=== PATIENT | male | born 1945 | race Caucasian/White ===

== ENCOUNTER → 2024-04-27 | Outpatient (CLI) | payer OTHER, SELFPAY ==
--- NOTE | 2024-04-27 | IMM_PTH ---
PATIENT: AC SAENZ LOC: [facility] U#:[id number] AGE/SX: 78/M ROOM: RE04/27/[address]: Dr. Clark Mendez MD : 1945 BED: DIS: 04/27/2024 SPEC #: [id number] RECD: 05/01/24 10:39 STATUS: SOUT REQ #: [id number] LUCY: 04/27/24 00:[address]: Clark Mendez DEPT: IMMUNOHISTOCHEMISTRY RECD BY: Reddy Oakley ENTERED: 05/01/24 10:39 SP TYPE: IMMUNO OTHR DR: Dr. Loco Kauffman MD Tissues: PROSTATE LEFT Procedures: P40 (add) 34BE12 (initial) PHYSICIAN & INSTITUTION [place] [id number] SPECIMEN INFORMATION: Tissue Source: Left apex Clinical Info: Elevated PSA Specimen Number: [id number] CPT code: 38731,83470 METHODOLOGY: Deparaffinized sections of prefer/formalin-fixed tissue or PAP/DQ stained slides are incubated with monoclonal/polyclonal antibodies/oligonucleotide probes. Localization is made via biotin free immunoperoxidase method. Appropriate controls are performed and reacted as expected. Results on target cell population are indicated in the following table: RESULTS: ANTIBODY / CLONE RESULT 34BE12 (34BE12) positive around glands P40 (BC28) positive around glands These tests were developed and their performance characteristics determined by [facility]. They may not have been cleared or approved by the [place]. Food and Drug Administration. The FDA has determined that such clearance or approval is not necessary. The above immunohistochemical/dualISH markers are ordered and reviewed by the Pathologist. Dr. Davide Warner has also reviewed the immunohistochemistry and concurs. IDC:SJ INTERPRETATION: Prostate, left apex, core biopsy: Immunohistochemistry on both blocks shows positive basal cell layer around glands. No evidence of carcinoma. PW.mr 05/02/2024
--- NOTE | 2024-04-27 13:00 | PROSBIL_PTH ---
PATIENT: AC SAENZ LOC: [facility] U#:[id number] AGE/SX: 78/M ROOM: RE04/27/[address]: Dr. Clark Mendez MD : 1945 BED: DIS: 04/27/2024 SPEC #: [id number] RECD: 04/27/24 16:27 STATUS: BIBI BLACKMAN #: [id number] LUCY: 04/27/24 13:[address]: Clark Mendez DEPT: SURGICAL PATHOLOGY RECD BY: Edgardo Chakraborty ENTERED: 04/28/24 07:16 SP TYPE: PROST BX MACARIO DR: Dr. Loco Kauffman MD Tissues: PROSTATE LEFT Procedures: PROSTATE BX HEADER jOPERATION: Prostate biopsy PRE-OP DIAGNOSIS: Elevated PSA TISSUE SUBMITTED: Left apex MICROSCOPIC DIAGNOSIS Prostate, left apex, core biopsy: Focal high-grade prostatic intraepithelial neoplasia (HGPIN). No evidence of carcinoma. See comment. PW.mr 05/02/2024 COMMENT Immunohistochemistry ([id number]) supports the above diagnosis. Dr. Davide Warner has reviewed the material and concurs. IDC:SJ MICROSCOPIC DESCRIPTION Slides are reviewed. GROSS DESCRIPTION Received is one container designated prostate, left apex. The specimen consists of five elongated fragments of light gifford-white soft tissue each measuring 0.5 to 1.7 cm in length and 0.1 cm in diameter. The specimen is totally submitted in two cassettes. 04/28/2024 TC:5 CPT: 51004
== END | disposition home or self-care (01) ==
PROVIDERS: PCP Family Medicine; Referring Provider Urology; Visit Provider Urology
DX: R97.20 Elevated prostate specific antigen [PSA] (principal)